=== PATIENT | male | born 1945 | race Caucasian/White ===

== ENCOUNTER 2023-11-14 09:35 | Outpatient (CLI) | payer MEDICARE | END 2023-11-14 09:36 | disposition home or self-care (01) | LOC: CSHRAD 09:35 | PROVIDERS: ATTEND Family Medicine | DX: M47.812 Spondylosis without myelopathy or radiculopathy, cervical region (principal) | CPT/HCPCS: 72050 ==

== ENCOUNTER 2024-02-15 16:17 | Outpatient (CLI) | payer MEDICARE | END 2024-02-15 16:18 | disposition home or self-care (01) | LOC: CSHRAD 16:17 | PROVIDERS: ATTEND Family Medicine | DX: M54.50 Low back pain, unspecified (principal); M48.56XD Collapsed vertebra, not elsewhere classified, lumbar region, subsequent encounter for fracture with routine healing; M47.816 Spondylosis without myelopathy or radiculopathy, lumbar region; M85.88 Other specified disorders of bone density and structure, other site; M46.1 Sacroiliitis, not elsewhere classified | CPT/HCPCS: 72100 ==